=== PATIENT | female | born 1980 | race Caucasian/White ===

== ENCOUNTER 2022-06-11 13:31 | Emergency (ER) | payer BC, SELFPAY ==
[2022-06-11 13:37] VITALS: BP 147/100; PULSE 65; RESP 18; TEMP 36.9; O2SAT 96; BMI 36.6
[2022-06-11 14:05] VITALS: BP 133/67; PULSE 65; O2SAT 97
[2022-06-11 14:06] VITALS: PULSE 67; O2SAT 97
--- NOTE | 2022-06-11 14:24 | ED.GENADULT ---
HPI - General Adult General Chief complaint: Extremity Pain/Injury, Upper Stated complaint: L side face tingling, limbs weak Time Seen by Provider: 06/11/22 13:38 History of Present Illness HPI narrative: This 42-year-old female comes in reporting some tingling sensation in her left cheek followed by left upper and lower extremity. She did not have any unilateral weakness and states that the tingling sensation has improved. She put a mask on her face upon arrival here and states that she seemed to feel better at that time. She does not report any headache. She does not have any neck pain. Related Data Home Medications Medication Instructions Recorded Confirmed aspirin 81 mg tablet,delayed 81 mg PO DAILY 06/11/22 06/11/22 release (Adult Aspirin Regimen) brinzolamide 1 %-brimonidine 0.2 % 1 drp ophthalmic (eye) TID 06/11/22 06/11/22 eye drops,suspension (Simbrinza) ferrous sulfate 325 mg (65 mg 325 mg PO DAILY 06/11/22 06/11/22 iron) tablet latanoprost 0.005 % eye drops 1 drp ophthalmic (eye) DAILY 06/11/22 06/11/22 omeprazole 20 mg tablet,delayed 20 mg PO DAILY 06/11/22 06/11/22 release sertraline .ROUTE 06/11/22 timolol 0.25 % eye drops 1 drp ophthalmic (eye) BID 06/11/22 06/11/22 Allergies Allergy/AdvReac Type Severity Reaction Status Date / Time latex Allergy Mild Rash Verified 06/11/22 13:46 Review of Systems Status of ROS: Reports: 10 or more systems reviewed and unremarkable except as noted in History and below Narrative: Constitutional: No fevers, no weight gain or loss. Eyes: No discharge. No vision changes. HENT: No congestion, no sore throat, no ear pain. Cardiovascular: No chest pain, no palpitations. Respiratory: No shortness of breath, no wheezes, no cough. Gastrointestinal: No abdominal pain, no vomiting, no diarrhea. Genitourinary: No dysuria, no hematuria. Musculoskeletal: Normal range of motion. Skin: No rashes, no pruritis. Neurological: No dizziness, weakness, speech change. Tingling sensation as described above. Endo/Heme/Allergies: No bruising or bleeding. No polydipsia. Pysch: no suicidality, no anxiety, no insomnia. All other systems reviewed and are negative. PFSH PFSH Social History Smoking Status: Never smoker Do you use any of these nicotine containing products: None Second hand tobacco smoke exposure: No How often do you have a drink containing alcohol: monthly or less How many standard drinks containing alcohol do you have on a typical day: 1 or 2 How often do you have six or more drinks on one occasion: Never AUDIT-C Alcohol total score: 1 Non-prescribed substance use: denies use service: No Exam Narrative: Exam Narrative: Constitutional: Well-developed, well-nourished, no acute distress. HEENT: Normocephalic, atraumatic. Neck: Normal range of motion. Nontender. Supple. Heart: Regular. No murmurs. Normal rate. Intact distal pulses. Lungs: Clear to auscultation. No chest discomfort. No wheezes, rhonchi, or rales. Abdomen: Normal bowel sounds. Nontender. No rebound tenderness. Genitalia: Deferred. Back: No midline tenderness. Normal range of motion. Extremities: Normal range of motion. No injury. Skin: Intact. No rash. Warm. No erythema or pallor. Neurologic: No weakness. Alert and oriented. Tingling sensation has resolved. No facial asymmetry. Tongue is midline. Conveyor Line Battery Charger strength is equal bilaterally. [id number] is normal. No pronator drift. She is able to raise each leg from the bed. Speech is normal and her ability to ambulate is normal. Psychiatric: No suicidality. No anxiety or depression. No insomnia. Nursing notes and vitals signs are reviewed. Const: Vital Signs, click to edit/add: Vital Signs - 24 hr 06/11/22 13:37 06/11/22 14:05 06/11/22 14:06 Temperature 98.4 F Pulse Rate 65 67 Pulse Rate [Pulse Oximeter] 65 Respiratory Rate 18 Blood Pressure 133/67 Blood Pressure [Ri ght Upper Arm] 147/100 H Pulse Oximetry 96 97 97 Oxygen Delivery Me thod Room Air Course Vital Signs Vital signs: Initial Vital Signs Temperature 98.4 F 06/11/22 13:37 Temperature Source Temporal Artery Scan 06/11/22 13:37 Pulse Rate 65 06/11/22 13:37 Pulse Rhythm Regular 06/11/22 13:37 Pulse Strength 3+ Normal 06/11/22 13:37 Respiratory Rate 18 06/11/22 13:37 Blood Pressure 147/100 H 06/11/22 13:37 Blood Pressure Mean 115 H 06/11/22 13:37 Blood Pressure Position Sitting 06/11/22 13:37 Pulse Oximetry 96 06/11/22 13:37 Oxygen Delivery Method Room Air 06/11/22 13:37 Vital Signs Temperature 98.4 F 06/11/22 13:37 Pulse Rate 65 06/11/22 13:37 Respiratory Rate 18 06/11/22 13:37 Blood Pressure 147/100 H 06/11/22 13:37 Pulse Oximetry 96 06/11/22 13:37 Oxygen Delivery Method Room Air 06/11/22 13:37 Temperature 98.4 F 06/11/22 13:37 Pulse Rate 67 06/11/22 14:06 Respiratory Rate 18 06/11/22 13:37 Blood Pressure 133/67 06/11/22 14:05 Pulse Oximetry 97 06/11/22 14:06 Oxygen Delivery Method Room Air 06/11/22 13:37 Medical Decision Making MDM Narrative Medical decision making narrative: This patient comes in reporting tingling sensation that is now resolved. She is not showing any sign of neurologic deficit. She does not report headache. EKG shows normal sinus rhythm. She does take a baby aspirin daily because she said she had some small blood clots in her eye. She is otherwise in good health. I did describe lab and imaging options going forward which the patient declined in a process of shared decision making. At the time of discharge the patient appears safe for outpatient management. The treatment plan is reviewed along with written and verbal return precautions. Reasons to return and the importance of close followup were also reviewed. ECG Data Attestation: I personally reviewed and interpreted this ECG as follows: Interpretation: Normal sinus rhythm. Rate is 63 beats per minute. There are no ST or T-wave abnormalities. Discharge Plan Discharge Clinical Impression: Paresthesias Patient Disposition: Home, Self-Care Condition: Improved Additional Instructions: Continue current plans. Follow up with MD return if worsening symptoms happen. Prescriptions: No Action sertraline .ROUTE timolol 0.25 % drops 1 drp ophthalmic (eye) BID latanoprost 0.005 % drops 1 drp ophthalmic (eye) DAILY Simbrinza 1-0.2 % drops,suspension 1 drp ophthalmic (eye) TID aspirin [Adult Aspirin Regimen] 81 mg tablet,delayed release (DR/EC) 81 mg PO DAILY ferrous sulfate 325 mg (65 mg iron) tablet 325 mg PO DAILY omeprazole 20 mg tablet,delayed release (DR/EC) 20 mg PO DAILY Stand Alone Forms: [employer] Info Instructions
[2022-06-11 14:30] VITALS: PULSE 64; O2SAT 98
[2022-06-11 14:32] VITALS: BP 134/88; PULSE 64; O2SAT 98
== END 2022-06-11 14:47 | disposition home or self-care (01) ==
LOC: ED 14:37
PROVIDERS: Emergency Provider Emergency Medicine Emergency Medical Services
DX: R20.2 Paresthesia of skin (principal)
CPT/HCPCS: 93005; 99284